=== PATIENT | female | born 1960 | race American Indian/Alaskan Native ===

== ENCOUNTER 2019-08-07 15:56 | Emergency (ER) | payer OTHER ==
[2019-08-07 16:10] VITALS: BP 157/65
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
--- NOTE | 2019-08-07 16:40 | XRay Report ---
Lumbosacral spine, 2 views INDICATION: Chronic low back pain FINDINGS: The vertebral body heights and disc spaces are preserved. No fracture or spondylolisthesis. No spurring or arthritis. No bony abnormality identified. Impression: Normal lumbar spine radiograph. Signer Name: Wesley Dove MD Signed: 08/07/2019 4:35 PM Workstation Name: [id number]
[2019-08-07] MEDS ORDERED: DECADRON IM ONE (17:44)
[2019-08-07] MEDS ORDERED: FLEXERIL PO ONE (17:44)
[2019-08-07] MEDS ORDERED: NORCO 5/325 PO ONE (17:44)
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
== END 2019-08-07 18:22 | disposition home or self-care (01) ==
LOC: ED 15:56
DX: M54.5 Low back pain (principal); V89.2XXA Person injured in unspecified motor-vehicle accident, traffic, initial encounter; Y93.89 Activity, other specified; Y92.488 Other paved roadways as the place of occurrence of the external cause; Y99.8 Other external cause status
CPT/HCPCS: 72100; 96372; 99283; J1100

== ENCOUNTER 2019-10-04 13:12 | Emergency (ER) | payer MEDICARE, OTHER ==
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
--- NOTE | 2019-10-04 15:40 | Emergency Department Report ---
Blank Doc - Documentation Documentation: I attempted to see patient twice, pt was not in room, appears pt has eloped, I did not evaluate patient.
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
[2019-10-04 17:03] VITALS: BP 145/60
== END 2019-10-04 17:02 | disposition home or self-care (01) ==
LOC: ED 13:12
DX: S39.012A Strain of muscle, fascia and tendon of lower back, initial encounter (principal); E11.9 Type 2 diabetes mellitus without complications; I10 Essential (primary) hypertension; E78.5 Hyperlipidemia, unspecified; J45.909 Unspecified asthma, uncomplicated; Z79.1 Long term (current) use of non-steroidal anti-inflammatories (NSAID); Z79.899 Other long term (current) drug therapy; V87.7XXA Person injured in collision between other specified motor vehicles (traffic), initial encounter; Y93.89 Activity, other specified; Y92.488 Other paved roadways as the place of occurrence of the external cause; Y99.8 Other external cause status
CPT/HCPCS: 72100; 99283